=== PATIENT | female | born 1980 | race Caucasian/White ===

== ENCOUNTER 2020-09-10 01:19 | Emergency (ER) | payer BC, OTHER ==
--- NOTE | 2020-09-10 01:55 | ED General ---
General Chief Complaint: General Problems/Pain Stated Complaint: COVID Nursing Triage Note: Pt states she tested positive for Covid last Saturday and started coughing tonight and felt like she needed to get checked out. Nursing Sepsis Screen: No Definite Risk Source of Information: Patient History of Present Illness Date Seen by Provider: Sep 10, 2020 Time Seen by Provider: 01:25 Initial Comments Patient is a 40-year-old female with Covid tested positive approximately 1 week ago who presents with chest heaviness and persistent, staccato cough prior to ED arrival. Patient states she had a coughing fit and had difficulty catching her breath became very anxious. She has continued had daily fevers, chest tightness, with mild dyspnea. No history of asthma or chronic lung disease. No palpitations, leg pain or swelling. With generalized weakness and malaise. No other symptoms or complaints. Timing/Duration: 1 Week Severity: Moderate Modifying Factors: improves with Other Associated Systoms: Other Allergies and Home Medications Allergies Coded Allergies: No Known Drug Allergies (Unverified , 09/10/20) Patient Home Medication List Home Medication List Reviewed: Yes Review of Systems Review of Systems Constitutional: see HPI EENTM: see HPI Respiratory: see HPI Cardiovascular: see HPI Gastrointestinal: see HPI Genitourinary: see HPI Musculoskeletal: see HPI Skin: see HPI Psychiatric/Neurological: See HPI Hematologic/Lymphatic: See HPI Immunological/Allergic: see HPI All Other Systems Reviewed Negative Unless Noted: Yes Past Kqfvvbr-Oeelvt-Cbllvg Hx Past Med/Social Hx: Reviewed Nursing Past Med/Soc Hx Patient Social History Alcohol Use: Denies Use Smoking Status: Never a Smoker Recent Infectious Disease Expo: No Recent Hopitalizations: No Past Medical History Surgeries: Yes Section, Gallbladder Respiratory: No Cardiac: No Neurological: No Genitourinary: No Gastrointestinal: No Musculoskeletal: No Endocrine: No HEENT: No Cancer: No Psychosocial: No Integumentary: No Blood Disorders: No Physical Exam Vital Signs Vital Signs - First Documented 09/10/20 01:19 Temp 37.3 Pulse 70 Resp 18 B/P (MAP) 137/73 (94) Pulse Ox 98 O2 Delivery Room Air Capillary Refill : Less Than 3 Seconds Height, Weight, BMI Height: '" Weight: lbs. oz. kg; BMI Method: General Appearance: Anxious Eyes: Bilateral Eye Normal Inspection, Bilateral Eye PERRL, Bilateral Eye EOMI HEENT: PERRL/EOMI Neck: Supple Respiratory: Lungs Clear, No Accessory Muscle Use, Decreased Breath Sounds, Other Cardiovascular: Regular Rate, Rhythm, No Edema Gastrointestinal: Non Tender, Soft Back: Normal Inspection, No CVA Tenderness Extremity: Normal Capillary Refill, Non Tender Neurologic/Psychiatric: Alert, Oriented x3, sheet rock finisher II-XII Norm as Tested Skin: Normal Color Focused Exam Sepsis Stage: Ruled Out Progress/Results/Core Measures Suspected Sepsis Recent Fever Within 48 Hours: No Infection Criteria Present: None New/Unexplained Altered Menta: No Sepsis Screen: No Definite Risk SIRS Temperature: Pulse: 70 Respiratory Rate: 18 Blood Pressure 137 /73 Mean: 94 Results/Orders My Orders Orders - RICK SEXTON DO Chest 1 View Ap/Pa Only (09/10/20 01:36) Vital Signs/I&O 09/10/20 01:19 Temp 37.3 Pulse 70 Resp 18 B/P (MAP) 137/73 (94) Pulse Ox 98 O2 Delivery Room Air Capillary Refill : Less Than 3 Seconds Blood Pressure Mean: 94 Departure Communication (Admissions) Chest x-ray: Interstitial markings consistent with viral pneumonia. Patient with Covid with persistent cough without respiratory compromise. No discrete lobar infiltrate on x-ray. O2 saturations 100% on room air. Will add steroids antibiotics and albuterol inhaler. PCP follow-up. Return precautions reviewed. Impression Primary Impression: COVID-19 Disposition: 01 HOME, SELF-CARE Condition: Stable Departure-Patient Inst. Decision time for Depature: 01:54 Referrals: NO,LOCAL PHYSICIAN (PCP/Family) Primary Care Physician Patient Instructions: Coronavirus Disease 2019 (COVID-19) (DC) Add. Discharge Instructions: Please increase daily fluids and take Tylenol as needed for fever. Take newly prescribed medications as directed and follow-up with your PCP in 7 to 10 days for reevaluation. Return to the ED if new or worsening symptoms. All discharge instructions reviewed with patient and/or family. Voiced un derstanding. Scripts Albuterol Sulfate (Proventil Hfa) 6.7 Gm Hfa.aer.ad 2 PUFF INH Q6H for SHORTNESS OF BREATH, #1 EACH Prov: RICK SEXTON DO 09/10/20 Prednisone (Prednisone) 20 Mg Tab 40 MG PO DAILY, #6 TAB 0 Refills Prov: RICK SEXTON DO 09/10/20 Azithromycin (Zithromax) 250 Mg Tablet 250 MG PO UD, #6 TAB TAKE 2 TABLETS TODAY, THEN TAKE 1 TABLET DAILY FOR 4 MORE DAYS Prov: RICK SEXTON DO 09/10/20 Guaifenesin (Mucinex) 1,200 Mg Tab.er.12h 1200 MG PO BID, #30 TAB Prov: RICK SEXTON DO 09/10/20 RICK SEXTON DO Sep 10, 2020 01:55
[2020-09-10] MEDS ORDERED: PRD20T PO (01:57)
[2020-09-10] MEDS ORDERED: RT-ALBUINH INH (01:57)
[2020-09-10] MEDS ORDERED: AZIT250T PO (01:57)
[2020-09-10] MEDS ORDERED: GUAI120013 PO (01:57)
[2020-09-10] MEDS ORDERED: predniSONE 20 MG TAB PO ONE (02:00)
[2020-09-10 02:06] VITALS: BP 137/73
--- NOTE | 2020-09-10 08:46 | Diagnostic Imaging Report ---
INDICATION: Shortness of air FINDINGS: AP view of the chest demonstrates the lungs to be clear. The heart, mediastinum and pulmonary vascularity and visualized bony thorax normal. IMPRESSION: Normal chest. Dictated by: Dictated on workstation # [id number]
== END 2020-09-10 02:07 | disposition home or self-care (01) ==
LOC: ER FS 01:24
DX: U07.1 COVID-19 (principal); I10 Essential (primary) hypertension
CPT/HCPCS: 71045